=== PATIENT | female | born 1935 | race Caucasian/White ===

== ENCOUNTER 2022-05-22 15:21 | Inpatient (IN) | payer BC ==
[~2022-05-22] VITALS: Ht 154.9 cm; Wt 67.6 kg
--- NOTE | 2022-05-22 15:30 | NUR ---
jeanie 86 from home, c/o abdominal pain/nausea and vomiting since this morning. On room air, breathing evenly and unlabored. Connected to the monitor and pulse ox. Kept comfortable, will continue to monitor accordingly.
[2022-05-22] MEDS ORDERED: ONDANSETRON HCL/PF 4 MG/2 ML VIAL ONE ×2 (15:36→20:36)
[2022-05-22] MEDS ORDERED: ONDANSETRON HCL/PF 4 MG/2 ML VIAL IV ONE (16:00)
[2022-05-22 17:23] LABS: BASOPHILS % (AUTO) 0.7 % (0.0-2.0); EOSINOPHILS % (AUTO) 2.7 % (0.0-6.0); HEMATOCRIT 33 % (33-45); HEMOGLOBIN 10.9 g/dL (11.5-14.8); LYMPHOCYTES # (AUTO) 1.5 K/uL (0.8-4.8); LYMPHOCYTES % (AUTO) 28.8 % (20.0-44.0); MEAN CORPUSCULAR HGB CONC 33 g/dl (31.0-36.0); MEAN CORPUSCULAR VOLUME 87 fL (82-100); MONOCYTES # (AUTO) 0.3 K/uL (0.1-1.30); MONOCYTES % (AUTO) 5.2 % (2.0-12.0); NEUTROPHILS # (AUTO) 3.1 K/uL (1.8-8.9); NEUTROPHILS % (AUTO) 62.6 % (43.0-81.0); PLATELET COUNT (AUTO) 224 K/uL (150-450); RED BLOOD CELL COUNT(AUTO) 3.84 MIL/uL (4.0-5.2)
[2022-05-22] MEDS ORDERED: IV NS 0.9% 1,000 ML IV ONE (17:30)
[2022-05-22 17:33] LABS: BILIRUBIN,URINE NEGATIVE (NEGATIVE); COLOR,URINE YELLOW (YELLOW); LEUKOCYTE ESTERASE ,URINE TRACE (NEGATIVE); NITRITE, URINE NEGATIVE (NEGATIVE); PH,URINE 5.5 (5.0-8.0); PROTEIN,URINE NEGATIVE (NEGATIVE); UGLUCOSE 100 MG/DL mg/dL (NEGATIVE); UROBILINOGEN,URINE 0.2 EU/dL (0.2)
[2022-05-22] MEDS ORDERED: METOCLOPRAMIDE HCL 10 MG/2 ML VIAL ONE (17:43)
--- NOTE | 2022-05-22 17:52 | NUR ---
AGUSTIN CARRASQUILLO ([id number]) [phone]
[2022-05-22] MEDS ORDERED: METOCLOPRAMIDE HCL 10 MG/2 ML VIAL IV ONE (18:00)
[2022-05-22 18:05] LABS: BACTERIA,URINE Few /HPF (None Seen); SQUAMOUS EPITHELIAL CELL,UR Moderate /HPF (None Seen)
--- NOTE | 2022-05-22 18:50 | NUR ---
rebecca mckinley (son in law) [phone]
--- NOTE | 2022-05-22 19:15 | NUR ---
PT BEING TRANSPORTED TO CT VIA [facility]
[2022-05-22] MEDS ORDERED: MORPHINE SULFATE INJ 4 MG/ML DISP.SYRIN ONE (20:36)
[2022-05-22 20:43] LABS: ALANINE AMINOTRANSFERASE 11 U/L (12-78); ALBUMIN 3.6 g/dL (3.4-5.0); ALKALINE PHOSPHATASE 90 U/L (46-116); ASPARTATE AMINOTRANSFERASE 18 U/L (15-37); BILIRUBIN,DIRECT 0.1 mg/dL (0.0-0.2); BILIRUBIN,TOTAL 0.6 mg/dL (0.2-1.0); CALCIUM, SERUM 10.7 mg/dL (8.5-10.1); CARBON DIOXIDE 25 mmol/L (21-32); CHLORIDE 106 mmol/L (98-107); CREATININE 1.4 mg/dL (0.6-1.3); GLUCOSE 124 mg/dL (74-106); LIPASE 84 U/L (73-393); POTASSIUM 3.1 mmol/L (3.5-5.1); SODIUM SERUM 144 mmol/L (136-145); TOTAL PROTEIN, SERUM 7.2 g/dL (6.4-8.2); UREA NITROGEN, BLOOD 21 mg/dL (7-18)
[2022-05-22] MEDS ORDERED: IV NS 0.9% 1,000 ML BAG IV ONE (21:00)
[2022-05-22] MEDS ORDERED: MORPHINE SULFATE INJ 2 MG/ML DISP.SYRIN IV ONE (21:00)
[2022-05-22] MEDS ORDERED: ONDANSETRON HCL/PF 4 MG/2 ML VIAL IVP ONE (21:00)
--- NOTE | 2022-05-22 21:22 | NUR ---
JOHN COLLECTED AND SENT TO LAB
[2022-05-22] MEDS ORDERED: MEROPENEM 1 G in IV NS 0.9% 100 ML IV ONE (21:30)
--- NOTE | 2022-05-22 21:31 | NUR ---
DR Shaw BAIN PAGED PER DR BATEMAN
[2022-05-22] MEDS ORDERED: MEROPENEM 1 G VIAL IV ONE (21:33)
--- NOTE | 2022-05-22 22:17 | NUR ---
DR BAIN REPAGED.
[2022-05-23] MEDS ORDERED: ZOLPIDEM TARTRATE 5 MG TABLET PO PRN
[2022-05-23] MEDS ORDERED: HYDROMORPHONE INJ 2 MG/ML DISP.SYRIN IV PRN
[2022-05-23] MEDS ORDERED: Z GUARD REMEDY 4 OZ OINT TP PRN
[2022-05-23] MEDS ORDERED: ACETAMINOPHEN 325 MG TABLET PO PRN
[2022-05-23] MEDS ORDERED: POTASSIUM CHLORIDE 20 MEQ TAB.PRT.SR PO ONE ×2 (01:05)
[2022-05-23] MEDS ORDERED: POTASSIUM CHLORIDE 10 MEQ TABLET.SA ONE (01:06)
--- NOTE | 2022-05-23 01:25 | NUR ---
REPORT GIVEN TO AWA
--- NOTE | 2022-05-23 01:33 | NUR ---
PT UNABLE TO RECALL HOME MEDS FOR MEDICATION RECONCILIATION
--- NOTE | 2022-05-23 02:11 | NUR ---
PT TRANSFERRED TO ROOM 119 VIA [facility] IN STABLE CONDITION
--- NOTE | 2022-05-23 02:30 | NUR ---
RN NOTE O230 RECEIVED 86 YO F PATIENT FROM ER. TRANSFERRED VIA GURNEY ACCOMPANIED BY 2 ER STAFF, ON RA TOLERATING WELL, A/O X4, VERBALLY RESPONSIVE, NO COMPLAINTS OF PAIN AT THIS TIME, NO S/SX OF RESPIRATORY DISTRESS, WITH IV ACCESS ON LAC #18G, INTACT, PATENT AND FLUSHING WELL, ADMISSION CARE RENDERED, SKIN ASSESSMENT DONE, PICTURES TAKEN AND PLACED ON CHART, ABLE TO TURN AND REPOSITION, WITH EPISODES OF N &V, CALL LIGHT WITHIN REACH AND INSTRUCTED TO CALL FOR ASSISTANCE, BED IN LOWEST AND LOCKED POSITION, WILL CONT TO MONITOR THROUGHOUT THE SHIFT.
[2022-05-23] MEDS: IV D5/0.45 NACL 1,000 ML IV PRN ×2 (02:39→22:20)
[2022-05-23 04:00] VITALS: BP 139/73
[2022-05-23] MEDS ORDERED: MEROPENEM 1 G VIAL IV ONE (04:40)
[2022-05-23] MEDS ORDERED: MEROPENEM 1 G in IV NS 0.9% 100 ML IV SCH ×4 (05:00)
--- NOTE | 2022-05-23 06:07 | NUR ---
MS RN CLOSING NOTE PT REMAINS ON BED, A/O X4, VERBALLY RESPONSIVE, ON RA TOLERATING WELL, NO COMPLAINTS OF PAIN AT THIS TIME, NO S/SX OF RESPIRATORY DISTRESS, WITH IV ACCESS ON LAC #18G, INTACT AND PATENT RUNNING D5 1/2 NS AT 75 ML/HR, ALL DUE MEDS GIVEN, KEPT DRY AND CLEAN THROUGHOUT SHIFT, CALL LIGHT WITHIN REACH AND INSTRUCTED TO CALL FOR ASSISTANCE, BED IN LOWEST AND LOCKED POSITION, WILL ENDORSE TO AM SHIFT NURSE.
[2022-05-23 06:18] LABS: BASOPHILS % (AUTO) 0.4 % (0.0-2.0); EOSINOPHILS % (AUTO) 0.1 % (0.0-6.0); HEMATOCRIT 31 % (33-45); HEMOGLOBIN 10.1 g/dL (11.5-14.8); LYMPHOCYTES # (AUTO) 0.6 K/uL (0.8-4.8); LYMPHOCYTES % (AUTO) 10.7 % (20.0-44.0); MEAN CORPUSCULAR HGB CONC 33 g/dl (31.0-36.0); MEAN CORPUSCULAR VOLUME 86 fL (82-100); MONOCYTES # (AUTO) 0.2 K/uL (0.1-1.30); MONOCYTES % (AUTO) 4.3 % (2.0-12.0); NEUTROPHILS # (AUTO) 4.7 K/uL (1.8-8.9); NEUTROPHILS % (AUTO) 84.5 % (43.0-81.0); PLATELET COUNT (AUTO) 203 K/uL (150-450); RED BLOOD CELL COUNT(AUTO) 3.63 MIL/uL (4.0-5.2); WHITE BLOOD COUNT (AUTO) 5.5 K/uL (4.3-11.0)
[2022-05-23 06:41] LABS: CALCIUM, SERUM 9.5 mg/dL (8.5-10.1); CREATININE 1.2 mg/dL (0.6-1.3); MAGNESIUM 1.7 mg/dL (1.8-2.4); POTASSIUM 3.5 mmol/L (3.5-5.1)
--- NOTE | 2022-05-23 07:00 | NUR ---
RN OPENING NOTE PT REMAINS ON BED, A/O X4, VERBALLY RESPONSIVE, ON RA TOLERATING WELL AT 99%, NO COMPLAINTS OF PAIN AT THIS TIME. NO S/SX OF RESPIRATORY DISTRESS, WITH IV ACCESS ON LAC #18G, INTACT AND PATENT RUNNING D5 1/2 NS AT 75 ML/HR. PT IS NPO. ALL SAFETY MEASURES IN PLACE: CALL LIGHT WITHIN REACH, BED IN LOWEST AND LOCKED POSITION, WILL CONTINUE TO MONITOR THROUGHOUT SHIFT.
[2022-05-23 08:25] LABS: THYROID STIMULATING HORMONE 0.738 uIU/mL (0.358-3.74)
[2022-05-23] MEDS: PANTOPRAZOLE 40 MG VIAL IV SCH (09:38)
[2022-05-23] MEDS: Magnesium 1GM/D5W 100ML PREMIX 100 ML IV SCH ×4 (10:00→16:10)
--- NOTE | 2022-05-23 10:44 | NUR ---
WOUND CARE CONSULT: PT PRESENTS WITH INTACT SKIN AND SURGICAL SCAR TO LEFT HIP, PRESENT ON ADMISSION. DISCUSSED SKIN PROTECTION WITH NURSING STAFF. MD IN AGREEMENT WITH PLAN OF CARE.
--- NOTE | 2022-05-23 14:25 | NUR ---
awaits iv place by laborer concrete plant nurse ,mag iv replacement rescheduled for 5pm.
[2022-05-23 14:52] VITALS: BP 130/73
[2022-05-23] MEDS ORDERED: Magnesium 1GM/D5W 100ML PREMIX 100 ML IV SCH (17:00)
--- NOTE | 2022-05-23 19:30 | NUR ---
RECEIVED PATIENT IN BED, AWAKE. A/OX4. ABLE TO MAKE NEEDS KNOWN. ON RA TOLERATING WELL, NO COMPLAINTS OF PAIN AT THIS TIME, NO S/SX OF RESPIRATORY DISTRESS, WITH IV ACCESS ON LT ARM 22G, INTACT AND PATENT, INFUSING D5 1/2 NS AT 75 ML/HR, ALL SAFETY MEASURES IN PLACE: CALL LIGHT WITHIN REACH AND INSTRUCTED TO CALL FOR ASSISTANCE, BED IN LOWEST AND LOCKED POSITION, SIDE RAILS UP X2. BED ALARM ON. WILL CONTINUE PLAN OF CARE.
--- NOTE | 2022-05-23 19:40 | NUR ---
RN CLOSING NOTE PT REMAINS ON BED, A/O X4, VERBALLY RESPONSIVE, ON RA TOLERATING WELL, NO COMPLAINTS OF PAIN AT THIS TIME, NO S/SX OF RESPIRATORY DISTRESS, WITH IV ACCESS ON CORINNE 22G, INTACT AND PATENT RUNNING D5 1/2 NS AT 75 ML/HR, ALL DUE MEDS GIVEN, KEPT DRY AND CLEAN THROUGHOUT SHIFT. ALL SAFETY MEASURES IN PLACE: CALL LIGHT WITHIN REACH AND INSTRUCTED TO CALL FOR ASSISTANCE, BED IN LOWEST AND LOCKED POSITION, WILL ENDORSE TO CORE DRILL OPERATOR HELPER NURSE
[2022-05-23 20:00] VITALS: BP 167/69
[2022-05-23] MEDS: MEROPENEM 500 MG in IV NS 0.9% 50 ML IV SCH (22:11)
[2022-05-24 04:00] VITALS: BP 150/69
[2022-05-24 06:58] LABS: BASOPHILS % (AUTO) 0.9 % (0.0-2.0); EOSINOPHILS % (AUTO) 3.2 % (0.0-6.0); HEMATOCRIT 33 % (33-45); HEMOGLOBIN 10.8 g/dL (11.5-14.8); LYMPHOCYTES # (AUTO) 0.9 K/uL (0.8-4.8); LYMPHOCYTES % (AUTO) 20.5 % (20.0-44.0); MEAN CORPUSCULAR HGB CONC 33 g/dl (31.0-36.0); MEAN CORPUSCULAR VOLUME 86 fL (82-100); MONOCYTES # (AUTO) 0.3 K/uL (0.1-1.30); MONOCYTES % (AUTO) 7.3 % (2.0-12.0); NEUTROPHILS # (AUTO) 3.1 K/uL (1.8-8.9); NEUTROPHILS % (AUTO) 68.1 % (43.0-81.0); PLATELET COUNT (AUTO) 193 K/uL (150-450); RED BLOOD CELL COUNT(AUTO) 3.81 MIL/uL (4.0-5.2); WHITE BLOOD COUNT (AUTO) 4.5 K/uL (4.3-11.0)
--- NOTE | 2022-05-24 07:15 | NUR ---
PATIENT IN BED, AWAKE. A/OX4. ABLE TO MAKE NEEDS KNOWN. ON RA TOLERATING WELL, NO COMPLAINTS OF PAIN AT THIS TIME, NO S/SX OF RESPIRATORY DISTRESS, WITH IV ACCESS ON CORINNE 22G, INTACT AND PATENT, INFUSING D5 1/2 NS AT 75 ML/HR, ALL SAFETY MEASURES IN PLACE: CALL LIGHT WITHIN REACH AND INSTRUCTED TO CALL FOR ASSISTANCE, BED IN LOWEST AND LOCKED POSITION, SIDE RAILS UP X2. BED ALARM ON. WILL ENDORSE TO NEXT NURSE ON DUTY FOR CONTINUITY OF CARE.
[2022-05-24 07:23] LABS: ALBUMIN 3.2 g/dL (3.4-5.0); BILIRUBIN,TOTAL 0.5 mg/dL (0.2-1.0); CREATININE 1.2 mg/dL (0.6-1.3); TOTAL PROTEIN, SERUM 6.6 g/dL (6.4-8.2)
[2022-05-24 07:41] LABS: CALCIUM, SERUM 9.6 mg/dL (8.5-10.1)
--- NOTE | 2022-05-24 07:45 | NUR ---
RN OPENING NOTES: RECEIVED PATIENT IN BED, AWAKE. A/OX4. ABLE TO MAKE NEEDS KNOWN. ON RA TOLERATING WELL, NO COMPLAINTS OF PAIN AT THIS TIME, NO S/SX OF RESPIRATORY DISTRESS, WITH IV ACCESS ON L ARM #22, INTACT AND PATENT, INFUSING D5 1/2 NS AT 75 ML/HR. KEPT NPO DUE TO PENDING HIDA SCAN. ALL SAFETY MEASURES IN PLACE: CALL LIGHT WITHIN REACH AND INSTRUCTED TO CALL FOR ASSISTANCE, BED IN LOWEST AND LOCKED POSITION, SIDE RAILS UP X2. BED ALARM ON. WILL CONTINUE WITH PLAN OF CARE.
[2022-05-24 08:00] LABS: POTASSIUM 2.7 mmol/L (3.5-5.1)
[2022-05-24] MEDS: MEROPENEM 500 MG in IV NS 0.9% 50 ML IV SCH (09:30)
[2022-05-24] MEDS: PANTOPRAZOLE 40 MG VIAL IV SCH (09:35)
[2022-05-24] MEDS ORDERED: POTASSIUM CHLORIDE 20 MEQ TAB.PRT.SR PO ONE (11:30)
[2022-05-24] MEDS ORDERED: POTASSIUM CHLORIDE 20 MEQ TAB.PRT.SR PO SCH (14:30)
--- NOTE | 2022-05-24 16:00 | NUR ---
PLATFORM INSPECTOR NOTESl: PT CONDITION IS STABLE, VS WNL UPON DISCHARGE. DC INSTRUCTIONS, BELONGINGS CHECKLIST DISCUSSED AND SIGNED AT BEDSIDE BY PT AND RN. ADDRESSED ANY QUESTIONS AND CONCERNS, PT VERBALIZED UNDERSTANDING. ID BAND AND IV ACCESS REMOVED. PT ESCORTED TO LOBBY VIA WHEELCHAIR BY STAFF, LEFT VIA PRIVATE CARE WITH SON IN LAW.
== END 2022-05-24 16:19 | disposition home or self-care (01) | DRG 391 ==
LOC: ER 15:23 → MEDSG1 05-23 00:19
PROVIDERS: ADMIT Nurse Practitioner Family
DX: A05.9 Bacterial foodborne intoxication, unspecified (principal); N17.0 Acute kidney failure with tubular necrosis; E87.6 Hypokalemia; D35.02 Benign neoplasm of left adrenal gland; M19.90 Unspecified osteoarthritis, unspecified site; E78.5 Hyperlipidemia, unspecified; I10 Essential (primary) hypertension; E83.42 Hypomagnesemia; J44.9 Chronic obstructive pulmonary disease, unspecified; Z96.642 Presence of left artificial hip joint; R94.31 Abnormal electrocardiogram [ECG] [EKG]; K44.9 Diaphragmatic hernia without obstruction or gangrene; K57.30 Diverticulosis of large intestine without perforation or abscess without bleeding; N28.1 Cyst of kidney, acquired; K76.89 Other specified diseases of liver; Z20.822 Contact with and (suspected) exposure to COVID-19
CPT/HCPCS: 36415; 76705-TC; 78226; 80048-TC; 80053-TC; 80076-TC; 81001; 82728-TC; 83540-TC; 83690-TC; 83735-TC; 84100-TC; 84443-TC; 84484-TC; 85025-TC; 87081-TC; 97116-TC; 97530-TC; A9537; C9113; C9803; G0378; J1170; J2185; J2270; J2405; J2765; J3475; J3490; J7030